=== PATIENT | female | born 1970 | race Caucasian/White ===

== ENCOUNTER 2017-10-04 10:06 | Emergency (ER) | payer OTHER ==
[2017-10-04 10:09] VITALS: Ht 167.6 cm
[2017-10-04 10:51] LABS: BASO % 0.3 %; BASO ABS # 0.02 K/uL (0-0.2); EOS % 2.1 %; EOS ABS # 0.16 K/uL (0-0.5); HEMATOCRIT 40.7 % (37-47); HEMOGLOBIN 13.8 g/dL (12.0-16.0); IG# 0.01 K/uL (0.00-0.02); LYMPH ABS # 2.08 K/uL (1.2-3.4); MEAN CELL VOLUME 96.9 fL (80-100); MEAN CORPUSCULAR HEMOGLOBIN 32.9 pg (25-34); MEAN CORPUSCULAR HGB CONC 33.9 g/dl (32-36); MEAN PLATELET VOLUME 9.7 fL (7.4-10.4); MONO % 5.3 %; MONO ABS # 0.41 K/uL (0.11-0.59); NEUT % 65.2 %; NEUT ABS # 5.03 K/uL (1.4-6.5); PLATELET COUNT 278 K/uL (130-400); RED CELL DISTRIBUTION WIDTH CV 13.6 % (11.5-14.5); WHITE BLOOD COUNT 7.71 K/uL (4.8-10.8)
--- NOTE | 2017-10-04 10:56 | DIAGNOSTIC IMAGING REPORT ---
CHEST ONE VIEW PORTABLE CLINICAL HISTORY: Weakness. Chest pain. COMPARISON STUDY: No previous studies for comparison. FINDINGS: Lung volumes are normal. No pneumothorax or pleural effusion is noted. There is no consolidation to suggest pneumonia. There is no evidence for pulmonary edema. Cardiomediastinal silhouette is unremarkable. IMPRESSION: No acute cardiopulmonary findings. Electronically signed by: Ulises Ham M.D. 10/04/2017 10:55 AM Dictated Date/Time: 10/04/2017 10:54 AM
[2017-10-04 10:59] LABS: ALBUMIN 4.3 gm/dl (3.4-5.0); ALT/SGPT 36 U/L (12-78); AST/SGOT 27 U/L (15-37); BLOOD UREA NITROGEN 8 mg/dl (7-18); CALCIUM 9.3 mg/dl (8.5-10.1); CARBON DIOXIDE 29 mmol/L (21-32); CREATININE 0.79 mg/dl (0.60-1.20); GLUCOSE 99 mg/dl (70-99); POTASSIUM 3.8 mmol/L (3.5-5.1); SODIUM 140 mmol/L (136-145)
[2017-10-04 11:04] LABS: PTT PATIENT 25.1 SECONDS (21.0-31.0)
[2017-10-04 11:10] LABS: ALKALINE PHOSPHATASE 76 U/L (45-117); CKMB < 0.5 ng/ml (0.5-3.6); TOTAL PROTEIN 7.8 gm/dl (6.4-8.2)
--- NOTE | 2017-10-04 11:20 | EMERGENCY ROOM VISIT NOTE ---
History Report prepared by Kamila: Bebeto Gooden Under the Supervision of: Dr. Quinn Price M.D. First contact with patient: 10:22 Chief Complaint: CHEST PAIN Stated Complaint: PULSATING IN NECK/CHEST PAIN/HEADACHE Nursing Triage Summary: neck pulsating PATEL and wheezing pt was sent sent in by [facility] no acute distress noted History of Present Illness The patient is a 46 year old female who presents to the Emergency Room with complaints left sided neck "twitching" that began two days ago. She rates her pain a 4/10 in severity. She has a past medical history of a partial hysterectomy without any other medical history. She has a family history of hypertension and heart disease. She regularly follows up with her PCP, but does not take any medications. A couple of days ago, the patient began to experience a "pulsating" sensation that she describes as a twitch to the left side of her neck. This persisted all day until the next day when it became intermittent. She is also experiencing a diffuse headache with some intermittent "crunching" centralized chest pain that occurred twice yesterday. Pt denies LOC, fevers, chills, diaphoresis, visual changes, neck pain, heart palpitations, breathing difficulties, nausea, vomiting, abdominal pain, back pain, melena, hematochezia , urinary symptoms, numbness, weakness, lymphadenopathy, rash, or other complaints.She notes that she made a recent trip from [place] to [place]. She also has been going through an immense amount of stress in her life recently. Source of History: patient Onset: two days ago Position: neck (left sided) Symptom Intensity: moderate Quality: other (Twitching) Timing: constant (only two days ago), intermittent (since the first day) Associated Symptoms: + headache, + chest pain (intermittent centralized) Review of Systems See HPI for pertinent positives and negatives. A total of ten systems were reviewed and were otherwise negative. Past Medical & Surgical Medical Problems: (1) No Known Active Medical Problems Surgical Problems: (1) History of partial hysterectomy Family History Heart disease Hypertension Social History Smoking Status: Light Tobacco Smoker Smokeless Tobacco Use: No Drug Use: none Marital Status: single Housing Status: lives with family Occupation Status: employed Current/Historical Medications No Active Prescriptions or Reported Meds Allergies Coded Allergies: No Known Allergies (Unverified , 10/04/17) Physical Exam Vital Signs Date Time Temp Pulse Resp B/P (MAP) Pulse Ox O2 Delivery O2 Flow Rate FiO2 10/04/17 16:04 68 16 120/87 98 Room Air 10/04/17 15:13 36.9 63 18 120/87 99 Room Air 10/04/17 14:28 36.8 82 18 119/76 100 Room Air 10/04/17 13:23 64 10/04/17 13:22 36.7 64 18 129/79 100 Room Air 10/04/17 12:26 36.9 65 18 121/83 98 Room Air 10/04/17 11:04 36.8 64 18 126/71 98 Room Air 10/04/17 10:25 68 10/04/17 10:09 36.7 78 18 135/80 99 Room Air Physical Exam GENERAL: Awake, alert, tearful-appearing, in no distress HENT: Normocephalic, atraumatic. Oropharynx unremarkable. EYES: Normal conjunctiva. Sclera non-icteric. NECK: Supple. No nuchal rigidity. FROM. No masses. RESPIRATORY: Clear to auscultation. No wheezes. CARDIAC: Normal rate. Normal rhythm. No murmurs. No rubs. Extremities warm and well perfused. Pulses equal. No JVD. GI: Soft, non-distended. No tenderness to palpation. No rebound or guarding. No masses. RECTAL: Deferred. MUSCULOSKELETAL: Atraumatic. Chest examination reveals no tenderness. The back is symmetrical on inspection without obvious abnormality. There is no CVA tenderness to palpation. No joint edema. LOWER EXTREMITIES: Calves are equal size bilaterally and non-tender. No edema. No discoloration. NEURO: Normal sensorium. No sensory or motor deficits noted. SKIN: No rash or jaundice noted. Medical Decision & Procedures ER Provider Diagnostic Interpretation: Radiology results as stated below per my review and radiologist interpretation: CHEST ONE VIEW PORTABLE CLINICAL HISTORY: Weakness. Chest pain. COMPARISON STUDY: No previous studies for comparison. FINDINGS: Lung volumes are normal. No pneumothorax or pleural effusion is noted. There is no consolidation to suggest pneumonia. There is no evidence for pulmonary edema. Cardiomediastinal silhouette is unremarkable. IMPRESSION: No acute cardiopulmonary findings. Electronically signed by: Ulises Ham M.D. 10/04/2017 10:55 AM Dictated Date/Time: 10/04/2017 10:54 AM ANGIOGRAPHY HEAD COMBO CLINICAL HISTORY: 46 years-old Female presenting with right headache, left neck discomfort, left neck pain. TECHNIQUE: Multidetector CT angiography of the head was performed before and after the administration of intravenous contrast. 3-D volumetric and/or maximum intensity projection (MIP) images were subsequently reconstructed for review. IV contrast: 110 mL of Optiray 320. A dose lowering technique was used consistent with the principles of ALARA (as low as reasonably achievable). COMPARISON: None. CT DOSE (mGy.cm): The estimated cumulative dose is 1082.94 mGy.cm. FINDINGS: Block Setter [place] topogram: Unremarkable. NONCONTRAST CT HEAD: Apparent crowding of the foramen magnum, possibly due to tonsillar ectopia. No hydrocephalus. Brain parenchyma normal in appearance with preserved pearce-white differentiation. No mass effect or midline shift. No hemorrhage or acute territorial infarct. No extra-axial fluid collection. Paranasal sinuses and mastoid air cells clear. Calvarium intact. CTA HEAD: Intracranial portions of the internal carotid arteries patent. Anterior and middle cerebral arteries patent. Anterior communicating artery patent. Posterior circulation demonstrates a right dominant vertebral artery. Both vertebral arteries contribute to the basilar artery. Posterior inferior cerebellar, basilar, anterior inferior cerebellar, superior cerebellar, and left posterior cerebral arteries patent. The right posterior cerebral artery has a near origin. Bilateral posterior communicating arteries patent. No evidence of aneurysm, focal vessel occlusion, or significant stenosis of the intracranial arteries. Dural venous sinuses patent. IMPRESSION: 1. No acute intracranial abnormality. 2. Possible tonsillar ectopia. 3. No evidence of aneurysm, focal vessel occlusion, or significant stenosis of the intracranial arteries. Electronically signed by: Mike Sweeney M.D. 10/04/2017 2:02 PM Dictated Date/Time: 10/04/2017 1:[address] ANGIOGRAPHY OF THE NECK WITH CONTRAST CLINICAL HISTORY: Right-sided headache. Left neck discomfort. COMPARISON STUDY: No previous studies for comparison. Technique: CT angiography of the carotid and vertebral arteries was obtained using Optiray 320 IV and 3D reconstruction on an independent workstation. NASCET criteria was utilized. A dose lowering technique was utilized adhering to the principles of ALARA. Findings: The bilateral common carotid, internal carotid and vertebral arteries are patent. There is no stenosis or dissection within these vessels. The right vertebral artery is dominant and patent. The left vertebral artery is diminutive. This is likely congenital. No significant atherosclerotic plaque is noted. There are tiny thyroid nodules. There is no cervical lymphadenopathy. Lung apices are clear. No suspicious skeletal lesions are noted. There is no cervical spine fracture. There is moderate multilevel degenerative disc disease within the cervical spine. IMPRESSION: Unremarkable CTA of the neck. No dissection or stenosis within the bilateral common carotid, internal carotid or vertebral arteries. Electronically signed by: Ulises Ham M.D. 10/04/2017 2:05 PM Dictated Date/Time: 10/04/2017 1:58 PM Laboratory Results 10/04/17 10:30 Red Blood Count 4.20, Mean Corpuscular Volume 96.9, Mean Corpuscular Hemoglobin 32.9, Mean Corpuscular Hemoglobin Concent 33.9, Mean Platelet Volume 9.7, Neutrophils (%) (Auto) 65.2, Lymphocytes (%) (Auto) 27.0, Monocytes (%) (Auto) 5.3, Eosinophils (%) (Auto) 2.1, Basophils (%) (Auto) 0.3, Neutrophils # (Auto) 5.03, Lymphocytes # (Auto) 2.08, Monocytes # (Auto) 0.41, Eosinophils # (Auto) 0.16, Basophils # (Auto) 0.02 10/04/17 10:30 Test 10/04/17 10:30 10/04/17 11:09 White Blood Count 7.71 K/uL (4.8-10.8) Red Blood Count 4.20 M/uL (4.2-5.4) Hemoglobin 13.8 g/dL (12.0-16.0) Hematocrit 40.7 % (37-47) Mean Corpuscular Volume 96.9 fL (80-100) Mean Corpuscular Hemoglobin 32.9 pg (25-34) Mean Corpuscular Hemoglobin Concent 33.9 g/dl (32-36) Platelet Count 278 K/uL (130-400) Mean Platelet Volume 9.7 fL (7.4-10.4) Neutrophils (%) (Auto) 65.2 % Lymphocytes (%) (Auto) 27.0 % Monocytes (%) (Auto) 5.3 % Eosinophils (%) (Auto) 2.1 % Basophils (%) (Auto) 0.3 % Neutrophils # (Auto) 5.03 K/uL (1.4-6.5) Lymphocytes # (Auto) 2.08 K/uL (1.2-3.4) Monocytes # (Auto) 0.41 K/uL (0.11-0.59) Eosinophils # (Auto) 0.16 K/uL (0-0.5) Basophils # (Auto) 0.02 K/uL (0-0.2) RDW Standard Deviation 48.0 fL (36.4-46.3) RDW Coefficient of Variation 13.6 % (11.5-14.5) Immature Granulocyte % (Auto) 0.1 % Immature Granulocyte # (Auto) 0.01 K/uL (0.00-0.02) Prothrombin Time 10.0 SECONDS (9.0-12.0) Prothromb Time International Ratio 1.0 (0.9-1.1) Activated Partial Thromboplast Time 25.1 SECONDS (21.0-31.0) Partial Thromboplastin Ratio 1.0 Anion Gap 6.0 mmol/L (3-11) Estimated GFR () 102.6 Estimated GFR (Non- 88.5 BUN/Creatinine Ratio 9.5 (10-20) Calcium Level 9.3 mg/dl (8.5-10.1) Magnesium Level 2.3 mg/dl (1.8-2.4) Total Bilirubin 0.5 mg/dl (0.2-1) Direct Bilirubin 0.1 mg/dl (0-0.2) Aspartate Amino Transf (AST/SGOT) 27 U/L (15-37) Alanine Aminotransferase (ALT/SGPT) 36 U/L (12-78) Alkaline Phosphatase 76 U/L (45-117) Total Creatine Kinase 166 U/L (26-192) Creatine Kinase MB < 0.5 ng/ml (0.5-3.6) Creatine Kinase MB Ratio (0-3.0) Troponin I < 0.015 ng/ml (0-0.045) Total Protein 7.8 gm/dl (6.4-8.2) Albumin 4.3 gm/dl (3.4-5.0) Thyroid Stimulating Hormone (TSH) 1.170 uIu/ml (0.300-4.500) Urine Color YELLOW Urine Appearance CLEAR (CLEAR) Urine pH 6.5 (4.5-7.5) Urine Specific [place] 1.009 (1.000-1.030) Urine Protein NEG (NEG) Urine Glucose (UA) NEG (NEG) Urine Ketones NEG (NEG) Urine Occult Blood 1+ (NEG) Urine Nitrite NEG (NEG) Urine Bilirubin NEG (NEG) Urine Urobilinogen NEG (NEG) Urine Leukocyte Esterase NEG (NEG) Urine WBC (Auto) 0 /hpf (0-5) Urine RBC (Auto) 0-4 /hpf (0-4) Urine Hyaline Casts (Auto) 0 /lpf (0-5) Urine Epithelial Cells (Auto) 10-20 /lpf (0-5) Urine Bacteria (Auto) NEG (NEG) Laboratory results reviewed by me ECG Indication: other (chest pain) Rate (beats per minute): 67 Rhythm: normal sinus Findings: Q waves (Septal), no acute ischemic change, no ectopy Change: Patient's electrocardiogram was interpreted by me. ED Course 1022: The patient was evaluated in room A10. A complete history and physical exam was performed. 1237: I updated the patient at this time. She is resting. 1605: I reevaluated the patient. Discussed results and discharge instructions: She verbalized understanding and agreement. The patient is ready for discharge. Medical Decision Triage Nursing notes reviewed. The patient's presentation and history were concerning for the neck symptoms. Etiologies such as vascular, musculoskeletal, metabolic, infection, hypo/ hyperglycemia, electrolyte abnormalities, cardiac sources, intracerebral event, toxicologic, neurologic, as well as others were entertained. The patient was evaluated. She was tearful. She had a mild elevation of her blood pressure. Neck examination was normal. Blood work and ECG performed. Her CBC, chemistry panel, cardiac markers and LFTs were unremarkable. TSH was normal. No acute ischemic change noted on ECG. Chest imaging was unremarkable. The patient underwent CT imaging of her head and neck. There is no evidence of dissection or aneurysm. No acute abnormalities were seen. The patient was reassessed and she was doing well. She noted a few fleeting episodes of the sensation in her neck. One occurred while I was in the room and it appeared as if there was a brief fasciculation of the left sternocleidomastoid muscle. She does further describes this as pulsations or twitching more so than pain/discomfort. With the lack of any abnormalities on testing it is possible that this is muscular in nature. She does note a significant amount of emotional stress due to her family's medical illnesses and recent moving of her daughter. She also notes stress with work and breaking up with a long-term relationship. The patient also notes consuming a significant amount of coffee on a daily basis. She is traveling here locally. She has a follow-up appointment already set with her primary physician. I discussed conservative management with her and she feels very comfortable. Of note the patient states that she did cardio exercise yesterday for over 30 minutes and had no symptoms or difficulties.I gave my usual and customary discussion regarding this issue. She was provided a copy of all of her results to take for follow-up. By the evaluation outlined above other emergent etiologies such as those listed in the differential, as well as others, were deemed relatively unlikely. The patient was educated about the findings as listed above. All questions were answered and the patient was pleased with the treatment. Return instructions were outlined and the patient was discharged in stable condition. The patient was referred to her PCP for follow-up for a recheck of the current condition. Medication Reconcilliation Current Medication List: was personally reviewed by me Blood Pressure Screening Patient's blood pressure: Elevated blood pressure Blood pressure disposition: Elevated BP felt to be situational Impression Primary Impression: Neck muscle spasm Additional Impressions: Headache Substernal chest pain Scribe Attestation The scribe's documentation has been prepared under my direction and personally reviewed by me in its entirety. I confirm that the note above accurately reflects all work, treatment, procedures, and medical decision making performed by me. Departure Information Dispostion Home / Self-Care Prescriptions No Active Prescriptions or Reported Meds Referrals No Doctor, Assigned (PCP) Forms Call Back Authorization, HOME CARE DOCUMENTATION FORM, IMPORTANT VISIT INFORMATION Patient Instructions My [facility] Additional Instructions Follow-up with your primary physician as discussed. Decrease caffeine intake as discussed. Stop smoking. Eat a healthy well balanced diet. Rest and avoid strenuous activity until follow-up with your primary physician. Take all of your labs and test results with you to your follow-up appointment. Return to the ER for worsening neck symptoms, chest pain, difficulty breathing, fevers, vomiting, worsening of your condition, or as needed. Problem Qualifiers
[2017-10-04] MEDS ORDERED: OPTIRAY 320 IV PRN (13:00)
--- NOTE | 2017-10-04 14:04 | DIAGNOSTIC IMAGING REPORT ---
ANGIOGRAPHY HEAD COMBO CLINICAL HISTORY: 46 years-old Female presenting with right headache, left neck discomfort, left neck pain. TECHNIQUE: Multidetector CT angiography of the head was performed before and after the administration of intravenous contrast. 3-D volumetric and/or maximum intensity projection (MIP) images were subsequently reconstructed for review. IV contrast: 110 mL of Optiray 320. A dose lowering technique was used consistent with the principles of ALARA (as low as reasonably achievable). COMPARISON: None. CT DOSE (mGy.cm): The estimated cumulative dose is 1082.94 mGy.cm. FINDINGS: Atm Mechanic topogram: Unremarkable. NONCONTRAST CT HEAD: Apparent crowding of the foramen magnum, possibly due to tonsillar ectopia. No hydrocephalus. Brain parenchyma normal in appearance with preserved pearce-white differentiation. No mass effect or midline shift. No hemorrhage or acute territorial infarct. No extra-axial fluid collection. Paranasal sinuses and mastoid air cells clear. Calvarium intact. CTA HEAD: Intracranial portions of the internal carotid arteries patent. Anterior and middle cerebral arteries patent. Anterior communicating artery patent. Posterior circulation demonstrates a right dominant vertebral artery. Both vertebral arteries contribute to the basilar artery. Posterior inferior cerebellar, basilar, anterior inferior cerebellar, superior cerebellar, and left posterior cerebral arteries patent. The right posterior cerebral artery has a near origin. Bilateral posterior communicating arteries patent. No evidence of aneurysm, focal vessel occlusion, or significant stenosis of the intracranial arteries. Dural venous sinuses patent. IMPRESSION: 1. No acute intracranial abnormality. 2. Possible tonsillar ectopia. 3. No evidence of aneurysm, focal vessel occlusion, or significant stenosis of the intracranial arteries. Electronically signed by: Mike Sweeney M.D. 10/04/2017 2:02 PM Dictated Date/Time: 10/04/2017 1:54 PM
--- NOTE | 2017-10-04 14:06 | DIAGNOSTIC IMAGING REPORT ---
CT ANGIOGRAPHY OF THE NECK WITH CONTRAST CLINICAL HISTORY: Right-sided headache. Left neck discomfort. COMPARISON STUDY: No previous studies for comparison. Technique: CT angiography of the carotid and vertebral arteries was obtained using Piqqual 320 IV and 3D reconstruction on an independent workstation. NASCET criteria was utilized. A dose lowering technique was utilized adhering to the principles of ALARA. Findings: The bilateral common carotid, internal carotid and vertebral arteries are patent. There is no stenosis or dissection within these vessels. The right vertebral artery is dominant and patent. The left vertebral artery is diminutive. This is likely congenital. No significant atherosclerotic plaque is noted. There are tiny thyroid nodules. There is no cervical lymphadenopathy. Lung apices are clear. No suspicious skeletal lesions are noted. There is no cervical spine fracture. There is moderate multilevel degenerative disc disease within the cervical spine. IMPRESSION: Unremarkable CTA of the neck. No dissection or stenosis within the bilateral common carotid, internal carotid or vertebral arteries. Electronically signed by: Ulises Ham M.D. 10/04/2017 2:05 PM Dictated Date/Time: 10/04/2017 1:58 PM
[2017-10-04 15:13] VITALS: TEMP 36.9
[2017-10-04 16:04] VITALS: BP 120/87; PULSE 68; O2SAT 98
== END 2017-10-04 16:34 | disposition home or self-care (01) ==
LOC: C.EDB 10:08 → C.EDA 16:34
DX: M62.838 Other muscle spasm (principal); R51 Headache; R07.2 Precordial pain; Z82.49 Family history of ischemic heart disease and other diseases of the circulatory system; F17.200 Nicotine dependence, unspecified, uncomplicated